=== PATIENT | female | born 1960 | race Caucasian/White ===

== ENCOUNTER → 2017-01-28 | Outpatient (CLI) | payer OTHER ==
[2006-04-09 10:30] VITALS: TEMP 96.9
[~2017-01-28] MED LIST: CIPRO 500MG TA500 MG PO; NORCO 325 MG-7.1 TAB PO; ZOFRAN 4MG T4 MG/TAB PO
== END ==
LOC: MC.RAD 09:58
DX: Z12.31 Encounter for screening mammogram for malignant neoplasm of breast (principal); R92.8 Other abnormal and inconclusive findings on diagnostic imaging of breast

== ENCOUNTER → 2017-01-29 | Outpatient (CLI) | payer OTHER ==
[2006-04-09 10:30] VITALS: TEMP 96.9
== END ==
LOC: MC.RAD 13:30
DX: R92.8 Other abnormal and inconclusive findings on diagnostic imaging of breast (principal)

== ENCOUNTER → 2019-04-16 | Outpatient (CLI) | payer OTHER ==
[2006-04-09 10:30] VITALS: TEMP 96.9
== END ==
LOC: MC.RAD 14:43
DX: Z12.31 Encounter for screening mammogram for malignant neoplasm of breast (principal)

== ENCOUNTER 2024-05-01 08:38 | Day surgery (SDC) | payer MEDICARE, OTHER ==
[~2024-05-01] VITALS: Ht 160 cm; Wt 65.9 kg
[~2024-05-01 08:38] MED LIST changes: +LR 1,000 ML IV SCH; +Ondansetron 4 MG/2 ML VIAL IV PRN; +ZOLOFT 50MG50 MG PO
[2024-05-01 08:51] VITALS: BP 112/75; PULSE 67; TEMP 97
--- NOTE | 2024-05-01 09:10 | NUR ---
The patient ambulated back to [place] [facility] independently using a steady gait and appeared to tolerate the activity well. Vital signs obtained. Consent signed. 20G IV started in right foearm with one stick, LR infusing without difficulty. Zofran 4 mg IV administered due to reports of feeling nauseated. Assessment completed. Home medications reconcilled. Warm blanket provided. , Luis Enrique, brought back to be at her bedside. Denies any further needs.
[2024-05-01] MEDS ORDERED: Lidocaine PF 2% (20 MG/ML) 5 ML VIAL ONE (09:50)
[2024-05-01 10:05] VITALS: BP 98/64; PULSE 60; TEMP 97.1
[2024-05-01 10:20] VITALS: BP 96/62; PULSE 58
[2024-05-01 10:30] VITALS: BP 101/88; PULSE 60
--- NOTE | 2024-05-01 10:35 | NUR ---
1005 RETURNS TO ROOM 2 PER CART. AWAKE, ALERT. RESP UNLABORED. AMBULATES TO RECLINER WITH STANDBY ASSIST. DENIES NAUSEA OR ABD PAIN. VITAL SIGNS OBTAINED. CALL LIGHT AT SIDE. IN ROOM. 1020 TOLERATES PO SODA WITHOUT NAUSEA. DISCHARGE INSTRUCTIONS REVIEWED. PATIENT VERBALIZES UNDERSTANDING. COPY PROVIDED IN DISCHARGE FOLDER 1030 DR LUCIANO HERE TO VISIT WITH PATIENT 1032 DRESSES SELF
== END 2024-05-01 10:38 | disposition home or self-care (01) ==
LOC: SDCO 08:38
DX: Z12.11 Encounter for screening for malignant neoplasm of colon (principal); Z80.0 Family history of malignant neoplasm of digestive organs
CPT/HCPCS: J2405; J2704; J7120

== ENCOUNTER 2024-08-15 07:57 | Emergency (ER) | payer MEDICARE, OTHER ==
[~2024-08-15] VITALS: Ht 160 cm; Wt 72.3 kg
[~2024-08-15 07:57] MED LIST changes: -LR 1,000 ML IV SCH; -Ondansetron 4 MG/2 ML VIAL IV PRN
[2024-08-15 08:01] VITALS: TEMP 97.5
[2024-08-15] MEDS ORDERED: FLEXERIL 1010 MG/TAB PO (10:09)
[2024-08-15] MEDS ORDERED: ZOFRAN ODT4 MG PO (10:09)
[2024-08-15] MEDS ORDERED: NORCO 325 MG-51 TAB PO (10:09)
[2024-08-15 10:24] VITALS: BP 108/73; PULSE 61
== END 2024-08-15 10:24 | disposition home or self-care (01) ==
LOC: COL.ER 07:57
DX: S76.012A Strain of muscle, fascia and tendon of left hip, initial encounter (principal); S39.012A Strain of muscle, fascia and tendon of lower back, initial encounter; X50.9XXA Other and unspecified overexertion or strenuous movements or postures, initial encounter; Y93.K1 Activity, walking an animal